=== PATIENT | male | born 1965 | race Caucasian/White ===

== ENCOUNTER 2021-01-30 11:11 | Emergency (ER) | payer OTHER ==
[2021-01-30 14:37] LABS: BASOPHIL 1.3 % (0-2); EOSINOPHIL 1.6 % (0-5); HCT 42.8 % (42.0-52.0); HGB 14.5 g/dl (13.2-18.0); LYMPHOCYTE 26.3 % (15-48); MCH 29.2 pg (25.0-31.0); MCHC 33.9 g/dL (32.0-36.0); MCV 86.3 fL (78.0-100.0); MONOCYTE 5.5 % (0-12); NEUTROPHIL 64.6 % (41-80); NRBC 0; PLT 241 K/uL (150-400); RBC 4.96 M/uL (4.70-6.00); RDW 11.9 % (11.5-14.0); WBC 6.8 K/uL (4.0-10.5)
[2021-01-30 14:53] LABS: ALBUMIN 3.6 g/dL (3.4-5.0); BILIRUBIN - TOTAL 0.5 mg/dL (0.2-1.0); BUN/CREAT RATIO (CALC) 15.2 RATIO; CREATININE 1.12 mg/dL (0.67-1.17); GLOBULIN (CALCULATION) 3.4 g/dL; POTASSIUM 4.2 mmol/L (3.5-5.1)
[2021-01-30] MEDS ORDERED: NORCO 5-325 TA1 EACH PO (15:49)
[2021-01-30] MEDS ORDERED: MEDICHOICE TRI1 EACH TOP (16:02)
[2021-01-30] MEDS ORDERED: BACTRIM DS TAB1 EACH PO (16:06)
== END 2021-01-30 16:36 | disposition home or self-care (01) ==
LOC: FER 11:11
PROVIDERS: Internal Medicine
DX: S81.811A Laceration without foreign body, right lower leg, initial encounter (principal); Z23 Encounter for immunization; W18.40XA Slipping, tripping and stumbling without falling, unspecified, initial encounter
CPT/HCPCS: 36415; 80053; 85025; 90471; 90714; 96374; 96376; J1170